=== PATIENT | female | born 1970 | race African-American/Black ===

== ENCOUNTER 2024-04-03 06:54 | Day surgery (SDC) | payer OTHER ==
[~2024-04-03] VITALS: Ht 165.1 cm; Wt 87.1 kg
[~2024-04-03 06:54] MED LIST: COQ10 PO; ROSUVASTATIN CAL5 MG PO
[2024-04-03] MEDS ORDERED: LACTATED RINGER'S 1,000 ML IV ONE (06:58)
[2024-04-03] MEDS ORDERED: STERILE WATER FOR IRRIGATION 1,000 ML BTL IR ONE (07:05)
[2024-04-03 08:35] VITALS: BP 139/84
[2024-04-03] MEDS ORDERED: LIDOCAINE HCL 2% 2ML SDV IV ONE (12:48)
[2024-04-03] MEDS ORDERED: GLYCOPYRROLATE 0.2 MG/ML IV ONE (12:48)
[2024-04-03] MEDS ORDERED: PROPOFOL 200 MG/20 ML VIAL IV ONE (12:48)
== END 2024-04-03 08:35 | disposition home or self-care (01) | DRG 951 ==
LOC: ORM 06:54
PROVIDERS: ATTEND Surgery
PROC: 0DJD8ZZ Inspection of Lower Intestinal Tract, Via Natural or Artificial Opening Endoscopic (ICD-10-PCS; principal; 2024-04-03)
DX: Z12.11 Encounter for screening for malignant neoplasm of colon (principal); K64.4 Residual hemorrhoidal skin tags; K64.8 Other hemorrhoids; Z80.0 Family history of malignant neoplasm of digestive organs
CPT/HCPCS: J1596